=== PATIENT | female | born 1995 | race Caucasian/White ===

== ENCOUNTER → 2018-01-31 | Outpatient (CLI) | END | disposition home or self-care (01) ==

== ENCOUNTER → 2018-12-05 | Outpatient (CLI) | payer BC, OTHER | END | disposition home or self-care (01) | LOC: LAB 10:05 → LAB SHORT 10:05 | DX: Z34.00 Encounter for supervision of normal first pregnancy, unspecified trimester (principal) | CPT/HCPCS: 87081; 87653 ==

== ENCOUNTER 2019-01-02 05:03 | Inpatient (IN) | payer BC, OTHER ==
[~2019-01-02] VITALS: Ht 167.6 cm; Wt 0.1 kg
[2019-01-02] MEDS ORDERED: Vitafol-Ob+Dha1 EACH (05:15)
[2019-01-02 05:36] LABS: BASOPHILS ABSOLUTE AUTO 0.03 K/mm3 (0.00-0.23); BASOPHILS PERCENT AUTO 0 % (0-2); EOSINOPHILS ABSOLUTE AUTO 0.12 K/mm3 (0.00-0.68); EOSINOPHILS PERCENT AUTO 1 % (0-6); Hematocrit 39.5 % (33.0-51.0); Hemoglobin 13.1 g/dL (11.5-16.0); IMMATURE GRAN ABSOLUTE AUTO 0.06 K/mm3 (0.00-0.10); IMMATURE GRAN PERCENT AUTO 1 % (0-1); LYMPHOCYTES ABSOLUTE AUTO 3.65 K/mm3 (0.84-5.20); LYMPHOCYTES PERCENT AUTO 32 % (21-46); MONOCYTES ABSOLUTE AUTO 0.97 K/mm3 (0.16-1.47); MONOCYTES PERCENT AUTO 9 % (4-13); Mean Corpuscular HGB 28.9 pg (26.0-34.0); Mean Corpuscular HGB Conc 33.2 g/dL (31.5-36.5); Mean Corpuscular Volume 87 fL (80-100); Mean Platelet Volume 11.8 fL (9.1-12.4); NEUTROPHILS ABSOLUTE AUTO 6.46 K/mm3 (1.96-9.15); NEUTROPHILS PERCENT AUTO 57 % (41-73); Platelet Count 160 K/mm3 (150-400); RDW Coefficient Variation 12.8 % (11.7-14.2); RDW Standard Deviation 40.5 fL (35.1-46.3); Red Blood Cell Count 4.54 M/mm3 (3.80-5.20); White Blood Cell Count 11.29 K/mm3 (4.00-11.30)
[2019-01-03 13:41] LABS: Hematocrit 35.8 % (33.0-51.0); Hemoglobin 11.9 g/dL (11.5-16.0); Mean Corpuscular HGB 28.9 pg (26.0-34.0); Mean Corpuscular HGB Conc 33.2 g/dL (31.5-36.5); Mean Corpuscular Volume 87 fL (80-100); Mean Platelet Volume 12.5 fL (9.1-12.4); Platelet Count 174 K/mm3 (150-400); RDW Coefficient Variation 12.9 % (11.7-14.2); RDW Standard Deviation 40.2 fL (35.1-46.3); Red Blood Cell Count 4.12 M/mm3 (3.80-5.20); White Blood Cell Count 18.28 K/mm3 (4.00-11.30)
--- NOTE | 2019-01-04 12:12 | NUR ---
dr duran updated on pt blood pressures, report they are below 150/90 and will follow up with her in the office, pt will return 5-3 for ppfu. pt denies headache, n/v, upper epigastric pain, or visual distrubances, reports her BP is high due to stress. explained PIH and sometimes it is PIH or Gest HTN and that we would still watch her blood pressures
[2019-01-04] MEDS ORDERED: IBUP800 PO (13:42)
== END 2019-01-04 14:10 | disposition home or self-care (01) | DRG 807 ==
LOC: BC 05:03
PROVIDERS: ADMIT Obstetrics & Gynecology
PROC: 3E033VJ Introduction of Other Hormone into Peripheral Vein, Percutaneous Approach (ICD-10-PCS; principal; 2019-01-02)
PROC: 10E0XZZ Delivery of Products of Conception, External Approach (ICD-10-PCS; 2019-01-02)
PROC: 10907ZC Drainage of Amniotic Fluid, Therapeutic from Products of Conception, Via Natural or Artificial Opening (ICD-10-PCS; 2019-01-02)
PROC: 10H07YZ Insertion of Other Device into Products of Conception, Via Natural or Artificial Opening (ICD-10-PCS; 2019-01-02)
PROC: 3E0R3BZ Introduction of Anesthetic Agent into Spinal Canal, Percutaneous Approach (ICD-10-PCS; 2019-01-02)
PROC: 00HU33Z Insertion of Infusion Device into Spinal Canal, Percutaneous Approach (ICD-10-PCS; 2019-01-02)
DX: O71.4 Obstetric high vaginal laceration alone (principal); Z37.0 Single live birth; Z3A.39 39 weeks gestation of pregnancy
CPT/HCPCS: 36415; 51702; 85025; 85027; J1885; J2405; J2590; J7120

== ENCOUNTER → 2020-03-10 | Outpatient (CLI) | payer BC ==
[~2020-03-10] MED LIST: IBUP800 PO; Vitafol-Ob+Dha1 EACH
== END | disposition home or self-care (01) ==
LOC: LAB 17:41 → LAB SHORT 17:41
PROVIDERS: Nurse Practitioner
DX: Z01.419 Encounter for gynecological examination (general) (routine) without abnormal findings (principal)
CPT/HCPCS: G0145

== ENCOUNTER 2020-11-19 12:14 | Day surgery (SDC) | payer BC ==
[~2020-11-19] VITALS: Ht 167.6 cm; Wt 73.6 kg
--- NOTE | 2020-11-19 14:42 | NUR ---
11/19/20 1442 RommelLaura S PT. VERBALIZED FEELING LIKE SOME BURNING/GAS IN HER ABD. POST COLONOSCOPY. DR. ART TALKING WITH PT. AT THIS TIME. VERBALIZED COULD BE SOME AIR IN THE COLON & DR. ART LET THE PT. KNOW THAT IT SHOULD GET BETTER. PT. THEN IN SD & IT HAD GONE AWAY. PT. DENIED ANY PAIN. PT. WANTED IV OUT & JUST GETTING READY TO GET IV OUT & PT. WAS GOING TO DRINK HER JUICE, PT. VERBALIZED FEELING JUST A LITTLE BIT OF NAUSEA BUT THEN BURPED & NAUSEA WENT AWAY.
== END 2020-11-19 14:30 | disposition home or self-care (01) ==
LOC: ORSCSDS 12:14
PROVIDERS: Internal Medicine Gastroenterology
PROC: 0DBG8ZX Excision of Left Large Intestine, Via Natural or Artificial Opening Endoscopic, Diagnostic (ICD-10-PCS; principal; 2020-11-19 13:30)
DX: Z12.11 Encounter for screening for malignant neoplasm of colon (principal); Z80.0 Family history of malignant neoplasm of digestive organs; K64.8 Other hemorrhoids
CPT/HCPCS: 88305; J2704; J7120

== ENCOUNTER → 2023-01-27 | Outpatient (CLI) | payer BC | END | disposition home or self-care (01) | LOC: LAB SHORT 17:25 → LAB 17:25 | PROVIDERS: Family Medicine | DX: Z12.4 Encounter for screening for malignant neoplasm of cervix (principal) | CPT/HCPCS: G0145 ==

== ENCOUNTER → 2023-04-18 | Outpatient (CLI) | payer BC | END | disposition home or self-care (01) | LOC: LAB 12:00 → LAB SHORT 12:00 | DX: R30.0 Dysuria (principal) | CPT/HCPCS: 87077; 87086; 87186 ==

== ENCOUNTER → 2023-09-14 | Outpatient (CLI) | payer BC ==
[2023-09-14 13:28] LABS: Protein, Urine Random 22.8 mg/dL (0.0-11.9); Protein/Creat Ratio, Ur Random 0.2
== END | disposition home or self-care (01) ==
LOC: LAB 11:24 → LAB SHORT 11:24
PROVIDERS: Family Medicine
DX: O16.3 Unspecified maternal hypertension, third trimester (principal); Z3A.36 36 weeks gestation of pregnancy
CPT/HCPCS: 82570; 84156; 87081; 87150

== ENCOUNTER 2023-10-03 09:15 | Inpatient (IN) | payer BC ==
[2023-10-03] VITALS (14 sets, daily range): BP systolic 131–168; BP diastolic 77–104
[~2023-10-03] VITALS: Ht 167.6 cm; Wt 90.0 kg
[2023-10-03 10:34] LABS: BASOPHILS ABSOLUTE AUTO 0.03 K/mm3 (0.00-0.23); BASOPHILS PERCENT AUTO 0 % (0-2); EOSINOPHILS ABSOLUTE AUTO 0.04 K/mm3 (0.00-0.68); EOSINOPHILS PERCENT AUTO 0 % (0-6); Hematocrit 36.6 % (33.0-51.0); Hemoglobin 12.5 g/dL (11.5-16.0); IMMATURE GRAN ABSOLUTE AUTO 0.04 K/mm3 (0.00-0.10); IMMATURE GRAN PERCENT AUTO 0 % (0-1); LYMPHOCYTES ABSOLUTE AUTO 1.56 K/mm3 (0.84-5.20); LYMPHOCYTES PERCENT AUTO 16 % (21-46); MONOCYTES ABSOLUTE AUTO 0.55 K/mm3 (0.16-1.47); MONOCYTES PERCENT AUTO 6 % (4-13); Mean Corpuscular HGB 27.9 pg (26.0-34.0); Mean Corpuscular HGB Conc 34.2 g/dL (31.5-36.5); Mean Corpuscular Volume 82 fL (80-100); Mean Platelet Volume 11.2 fL (9.1-12.4); NEUTROPHILS ABSOLUTE AUTO 7.75 K/mm3 (1.96-9.15); NEUTROPHILS PERCENT AUTO 78 % (41-73); Platelet Count 171 K/mm3 (150-400); RDW Coefficient Variation 12.8 % (11.7-14.2); Red Blood Cell Count 4.48 M/mm3 (3.80-5.20); White Blood Cell Count 9.97 K/mm3 (4.00-11.30)
[2023-10-04] VITALS (7 sets, daily range): BP systolic 136–152; BP diastolic 83–100
[2023-10-04 05:52] LABS: BASOPHILS ABSOLUTE AUTO 0.03 K/mm3 (0.00-0.23); BASOPHILS PERCENT AUTO 0 % (0-2); EOSINOPHILS ABSOLUTE AUTO 0.07 K/mm3 (0.00-0.68); EOSINOPHILS PERCENT AUTO 1 % (0-6); Hematocrit 31.7 % (33.0-51.0); Hemoglobin 10.5 g/dL (11.5-16.0); IMMATURE GRAN ABSOLUTE AUTO 0.08 K/mm3 (0.00-0.10); IMMATURE GRAN PERCENT AUTO 1 % (0-1); LYMPHOCYTES ABSOLUTE AUTO 3.27 K/mm3 (0.84-5.20); LYMPHOCYTES PERCENT AUTO 24 % (21-46); MONOCYTES ABSOLUTE AUTO 1.17 K/mm3 (0.16-1.47); MONOCYTES PERCENT AUTO 9 % (4-13); Mean Corpuscular HGB 27.6 pg (26.0-34.0); Mean Corpuscular HGB Conc 33.1 g/dL (31.5-36.5); Mean Corpuscular Volume 83 fL (80-100); Mean Platelet Volume 11.4 fL (9.1-12.4); NEUTROPHILS ABSOLUTE AUTO 9.16 K/mm3 (1.96-9.15); NEUTROPHILS PERCENT AUTO 67 % (41-73); Platelet Count 182 K/mm3 (150-400); RDW Coefficient Variation 12.8 % (11.7-14.2); RDW Standard Deviation 38.5 fL (35.1-46.3); White Blood Cell Count 13.78 K/mm3 (4.00-11.30)
[2023-10-04] MEDS ORDERED: IBUP800 PO (08:00)
--- NOTE | 2023-10-04 11:53 | NUR ---
PT DENIES PAIN AND REPORTS LOCHIA SCANT. PT DECLINES 3RD DOSE OF CYTOTEC AT THIS TIME.
--- NOTE | 2023-10-04 14:04 | NUR ---
1340: PT CONSENTS TO CYTOTEC DOSE. MEDS GIVEN. PT UP TO BRP, MODERATE SIZE CLOT PASSED IN THE TOILET. UNABLE TO WEIGH. UPDATE TO DR. BEAVER. DR. 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
--- NOTE | 2023-10-04 14:47 | NUR ---
PT UP TO BRP, LOCHIA SCANT.
--- NOTE | 2023-10-04 16:24 | NUR ---
UPDATE TO DR. BEAVER. DISCUSSED PT'S B/P. DISCUSSED PT'S CONCERN ABOUT RIGHT CALF PAIN. NO REDNESS, SWELLING, OR WARMTH TO SITE. U/S ORDERED TO R/T DVT. PT OKAY TO GO HOME AFTER U/S. DOESN'T HAVE TO WAIT FOR RESULTS. PT TO R/T FBP 10/05 FOR PPFU. DISCUSSED WITH PT S/S OF WHEN TO R/T TO HOSPITAL PRIOR TO PPFU IF NEEDED. BOTH PT AND HER VERBALIZE UNDERSTANDING.
--- NOTE | 2023-10-04 17:19 | NUR ---
U/S COMPLETE. DR. BEAVER HAS TALKED WITH [employer]/S TECH. DISCUSSED AND SIGNED D/C INSTRUCTIONS. PLAN D/C HOME.
== END 2023-10-04 17:30 | disposition home or self-care (01) | DRG 806 ==
LOC: OBS 09:15 → BC 09:15 → OBS 09:34 → BC 09:35
PROVIDERS: ADMIT Family Medicine
PROC: 4A1HXCZ Monitoring of Products of Conception, Cardiac Rate, External Approach (ICD-10-PCS; principal; 2023-10-03)
PROC: 10E0XZZ Delivery of Products of Conception, External Approach (ICD-10-PCS; 2023-10-03)
DX: O48.0 Post-term pregnancy (principal); O72.1 Other immediate postpartum hemorrhage; Z37.0 Single live birth; Z3A.40 40 weeks gestation of pregnancy; O99.62 Diseases of the digestive system complicating childbirth; K21.9 Gastro-esophageal reflux disease without esophagitis; Z88.1 Allergy status to other antibiotic agents; Z88.8 Allergy status to other drugs, medicaments and biological substances
CPT/HCPCS: 36415; 59025; 85025; 86850; 86900; 86901; 93971; 99214; A9270; J1885; J2590; J7120

== ENCOUNTER → 2024-07-04 | Outpatient (CLI) | payer BC | LOC: LAB SHORT 17:03 → LAB 17:03 | DX: R30.0 Dysuria (principal) | CPT/HCPCS: 87077; 87086; 87186 ==